=== PATIENT | male | born 1940 | race Caucasian/White ===

== ENCOUNTER 2020-06-07 17:13 | Inpatient (IN) ==
[2020-06-07] MEDS ORDERED: 0.9 % Sodium Chloride 1,000 ML IVC ONE (17:41)
[2020-06-07] MEDS ORDERED: Dexamethasone 4 MG/ML VIAL IVP ONE (17:43)
[2020-06-07 19:13] LABS: Basophils % 0.1 %; Eosinophils # 0.1 K/mcL (0.0-0.6); Eosinophils % 0.7 %; Hemoglobin 13.7 g/dL (12.9-16.9); Immature Granulocytes % 0.5 % (0-4); Lymphocytes # 0.7 K/mcL (0.6-4.6); Lymphocytes % 8.4 %; Mean Corpuscular HGB Conc 33.4 g/dL (31.6-35.5); Mean Corpuscular Hemoglobin 31.6 pg (28.0-33.3); Mean Corpuscular Volume 94.7 fL (83.0-100.0); Mean Platelet Volume 10.6 fL (9.4-12.4); Monocytes # 0.3 K/mcL (0.0-1.3); Monocytes % 3.7 %; Neutrophils # 7.5 K/mcL (1.6-8.9); Platelet Count 164 K/mcL (140-400); Red Blood Count 4.33 M/mcL (4.19-5.50); Red Cell Distribution Width 12.6 % (11.5-14.5); Segmented Neutrophils % 86.6 %; White Blood Count 8.7 K/mcL (4.3-11.1)
[2020-06-07 19:22] LABS: INR 1.3; Prothrombin Time 14.9 Seconds (9.4-12.1)
[2020-06-07 19:23] LABS: Activated Partial Thrombo Time 25.2 Seconds (26.0-36.0)
[2020-06-07 19:36] LABS: Alanine Aminotransferase 18 Units/L (7-52); Albumin 3.1 g/dL (3.5-5.7); Albumin/Globulin Ratio 0.9 (1.1-2.2); Alkaline Phosphatase 43 Units/L (34-104); Aspartate Amino Transferase 26 Units/L (13-39); BUN/Creatinine Ratio 23 (6-26); Bilirubin,Direct 0.3 mg/dL (0.0-0.2); Bilirubin,Indirect 0.6 mg/dL (0.0-1.0); Bilirubin,Total 0.9 mg/dL (0.3-1.0); Blood Urea Nitrogen 19 mg/dL (8-23); C-Reactive Protein 244 mg/L (Less than 10); Calcium 8.2 mg/dL (8.6-10.3); Carbon Dioxide 27 mEq/L (23-29); Chloride 99 mEq/L (98-107); Globulin 3.3 g/dL (2.4-3.5); Glucose 142 mg/dL (70-105); Lactate Dehydrogenase 297 Units/L (140-271); Magnesium 1.9 mg/dL (1.6-2.6); Osmolality,Calculated 289 (280-300); Phosphorous 2.5 mg/dL (2.7-4.5); Potassium 3.5 mEq/L (3.5-5.1); Sodium 137 mEq/L (136-145); Total Protein 6.4 g/dL (6.4-8.9); Troponin I < 0.03 ng/mL (< 0.04); eGFR For African Americans > 60 (> 60); eGFR For Non-African Americans > 60 (> 60)
[2020-06-07 19:54] LABS: Ferritin 795 ng/mL (20-250)
[2020-06-07 19:56] LABS: Adenovirus Not Detected (Not Detect); Coronavirus 229E Not Detected (Not Detect); Coronavirus HKU1 Not Detected (Not Detect); Coronavirus NL63 Not Detected (Not Detect); Coronavirus OC43 Not Detected (Not Detect)
[2020-06-07 19:59] LABS: SARS-CoV-2 DETECTED (Not Detect)
[2020-06-07 20:00] LABS: Bordetella Pertussis Not Detected (Not Detect); Chlamydophila pneumoniae Not Detected (Not Detect); Human Metapneumovirus Not Detected (Not Detect); Human Rhinovirus/Enterovirus Not Detected (Not Detect); Influenza A Subtype 2009 H1 Not Detected (Not Detect); Influenza B Not Detected (Not Detect); Mycoplasma pneumoniae Not Detected (Not Detect); Parainfluenza Virus 1 Not Detected (Not Detect); Parainfluenza Virus 2 Not Detected (Not Detect); Parainfluenza Virus 3 Not Detected (Not Detect); Parainfluenza Virus 4 Not Detected (Not Detect); Respiratory Syncytial Virus Not Detected (Not Detect)
[2020-06-07] MEDS ORDERED: Acetaminophen 325 MG TABLET PO PRN (21:30)
[2020-06-07] MEDS ORDERED: Ondansetron 4 MG/2 ML VIAL IVP PRN (21:30)
[2020-06-07] MEDS ORDERED: Naloxone 0.4 MG/ML INJ IVP PRN ×2 (21:30→23:00)
[2020-06-07] MEDS ORDERED: *HR* Heparin 5,000 UNIT/ML VIAL IVP PRN ×2 (23:00)
[2020-06-07] MEDS ORDERED: *HR* Heparin 5,000 UNIT/ML VIAL IVP ONE (23:00)
[2020-06-07] MEDS ORDERED: Dextrose Gel 15 GM/37.5 ML TUBE PO PRN ×2 (23:18)
[2020-06-07] MEDS ORDERED: *HR* Dextrose 50 % in Water (Vial) 50 ML VIAL IVP PRN (23:18)
[2020-06-07] MEDS ORDERED: D5% in Water 1,000 ML IVC PRN (23:18)
[2020-06-07] MEDS: Furosemide 40 MG/4 ML VIAL IVP SCH (23:34)
[2020-06-07] MEDS: Heparin 25,000UNIT/250ML 1/2NS 25,000 UNIT/250 ML IV.SOLN IVC SCH (23:35)
[2020-06-07 23:57] LABS: Hematocrit 38.7 % (37.5-50.1); Hemoglobin 13.3 g/dL (12.9-16.9); Mean Corpuscular HGB Conc 34.4 g/dL (31.6-35.5); Mean Corpuscular Hemoglobin 31.9 pg (28.0-33.3); Mean Corpuscular Volume 92.8 fL (83.0-100.0); Mean Platelet Volume 10.5 fL (9.4-12.4); Platelet Count 158 K/mcL (140-400); Red Blood Count 4.17 M/mcL (4.19-5.50); Red Cell Distribution Width 12.8 % (11.5-14.5); White Blood Count 7.9 K/mcL (4.3-11.1)
[2020-06-08 00:14] LABS: Heparin anti-factor XA UFH < 0.04 IU/mL (0.30-0.70)
[2020-06-08 00:15] LABS: INR 1.3; Prothrombin Time 15.1 Seconds (9.4-12.1)
[2020-06-08 02:09] LABS: Bilirubin,Urine Negative (Negative); Blood,Urine Negative (Negative); Clarity,Urine Clear (Clear); Color,Urine Light-Yellow (Yellow); Glucose,Urine (UA) Normal (Normal); Ketones,Urine 10 mg/dL (Negative); Leukocyte Esterase,Urine Negative (Negative); Nitrite,Urine Negative (Negative); Protein,Urine Trace mg/dL (Neg-Trace); Specific Gravity,Urine 1.015 (1.010-1.025); Urobilinogen,Urine Normal (Normal)
[2020-06-08] MEDS ORDERED: Pantoprazole 40 MG VIAL IVP SCH (06:30)
[2020-06-08 07:07] LABS: Hematocrit 39.8 % (37.5-50.1); Hemoglobin 13.6 g/dL (12.9-16.9); Mean Corpuscular HGB Conc 34.2 g/dL (31.6-35.5); Mean Corpuscular Hemoglobin 32.5 pg (28.0-33.3); Mean Platelet Volume 10.6 fL (9.4-12.4); Monocytes # 0.2 K/mcL (0.0-1.3); Platelet Count 175 K/mcL (140-400); Red Blood Count 4.19 M/mcL (4.19-5.50); Red Cell Distribution Width 12.6 % (11.5-14.5); White Blood Count 4.9 K/mcL (4.3-11.1)
[2020-06-08 07:11] LABS: INR 1.6; Prothrombin Time 17.8 Seconds (9.4-12.1)
[2020-06-08 07:26] LABS: D-Dimer 1817 ng/mLFEU (0-500)
[2020-06-08 07:28] LABS: BUN/Creatinine Ratio 24 (6-26); Blood Urea Nitrogen 21 mg/dL (8-23); Calcium 8.5 mg/dL (8.6-10.3); Carbon Dioxide 26 mEq/L (23-29); Chloride 99 mEq/L (98-107); Fibrinogen 766 mg/dL (169-393); Glucose 209 mg/dL (70-105); Heparin anti-factor XA UFH > 2.00 IU/mL (0.30-0.70); Magnesium 1.8 mg/dL (1.6-2.6); Osmolality,Calculated 291 (280-300); Potassium 3.8 mEq/L (3.5-5.1); Sodium 136 mEq/L (136-145); eGFR For African Americans > 60 (> 60); eGFR For Non-African Americans > 60 (> 60)
[2020-06-08 08:06] LABS: Lymphocytes # 0.7 K/mcL (0.6-4.6); Platelet Estimate Normal (Normal)
[2020-06-08 08:08] LABS: Reactive Lymphocytes Present (Not Present)
[2020-06-08] MEDS: Insulin LISPRO 300 UNITS/3 ML VIAL SQ SCH ×3 (09:35→16:03)
[2020-06-08] MEDS: Furosemide 40 MG/4 ML VIAL IVP SCH ×2 (09:57→19:49)
[2020-06-08] MEDS: Dexamethasone 4 MG/ML VIAL IVP SCH (09:58)
[2020-06-08 11:06] LABS: Estimated Average Glucose 194 mg/dl
[2020-06-08] MEDS ORDERED: NON-FORMULARY MEDICATION 1 EACH EACH (Metoprolol Succinate [Toprol Xl] 100 MG) PO SCH (11:45)
[2020-06-08 15:54] LABS: Acinetobacter baumannii by PCR Not Detected (Not Detect); Candida albicans by PCR Not Detected (Not Detect); Candida glabrata by PCR Not Detected (Not Detect); Candida krusei by PCR Not Detected (Not Detect); Candida parapsilosis by PCR Not Detected (Not Detect); Candida tropicalis by PCR Not Detected (Not Detect); Enterobacter cloacae Cmplx PCR Not Detected (Not Detect); Enterobacteriaceae by PCR Not Detected (Not Detect); Enterococcus by PCR Not Detected (Not Detect); Escherichia coli by PCR Not Detected (Not Detect); Klebsiella oxytoca by PCR Not Detected (Not Detect); Klebsiella pneumoniae by PCR Not Detected (Not Detect); Proteus by PCR Not Detected (Not Detect); Pseudomonas aeruginosa by PCR Not Detected (Not Detect); Serratia marcescens by PCR Not Detected (Not Detect); Staphylococcus aureus by PCR Not Detected (Not Detect); Staphylococcus by PCR DETECTED (Not Detect); Streptococcus agalactiae(B)PCR Not Detected (Not Detect); Streptococcus by PCR Not Detected (Not Detect); Streptococcus pneumoniae PCR Not Detected (Not Detect); Streptococcus pyogenes (A) PCR Not Detected (Not Detect); mecA Methicillin-Resist Gene Not Detected (Not Detect)
[2020-06-08] MEDS: Benzonatate 100 MG CAPSULE PO PRN (20:43)
[2020-06-08] MEDS ORDERED: Insulin LISPRO 300 UNITS/3 ML VIAL SQ SCH (21:00)
[2020-06-08] MEDS: Heparin 25,000UNIT/250ML 1/2NS 25,000 UNIT/250 ML IV.SOLN IVC SCH (21:57)
[2020-06-09 03:28] LABS: Basophils % 0.2 %; Hematocrit 41.2 % (37.5-50.1); Immature Granulocytes % 0.6 % (0-4); Lymphocytes # 0.7 K/mcL (0.6-4.6); Lymphocytes % 8.1 %; Mean Corpuscular Hemoglobin 31.7 pg (28.0-33.3); Mean Corpuscular Volume 93.2 fL (83.0-100.0); Mean Platelet Volume 10.6 fL (9.4-12.4); Monocytes # 0.3 K/mcL (0.0-1.3); Monocytes % 3.7 %; Neutrophils # 7.6 K/mcL (1.6-8.9); Platelet Count 227 K/mcL (140-400); Red Blood Count 4.42 M/mcL (4.19-5.50); Red Cell Distribution Width 12.5 % (11.5-14.5); Segmented Neutrophils % 87.4 %
[2020-06-09 03:30] LABS: White Blood Count 8.7 K/mcL (4.3-11.1)
[2020-06-09 03:39] LABS: D-Dimer 3073 ng/mLFEU (0-500); Fibrinogen 740 mg/dL (169-393)
[2020-06-09 03:44] LABS: Alanine Aminotransferase 18 Units/L (7-52); Albumin 3.1 g/dL (3.5-5.7); Albumin/Globulin Ratio 0.9 (1.1-2.2); Alkaline Phosphatase 41 Units/L (34-104); Aspartate Amino Transferase 21 Units/L (13-39); BUN/Creatinine Ratio 34 (6-26); Bilirubin,Total 0.7 mg/dL (0.3-1.0); Blood Urea Nitrogen 31 mg/dL (8-23); Calcium 8.6 mg/dL (8.6-10.3); Carbon Dioxide 26 mEq/L (23-29); Chloride 99 mEq/L (98-107); Globulin 3.3 g/dL (2.4-3.5); Glucose 228 mg/dL (70-105); Osmolality,Calculated 296 (280-300); Potassium 3.5 mEq/L (3.5-5.1); Sodium 136 mEq/L (136-145); Total Protein 6.4 g/dL (6.4-8.9); eGFR For African Americans > 60 (> 60); eGFR For Non-African Americans > 60 (> 60)
[2020-06-09] MEDS: Benzonatate 100 MG CAPSULE PO PRN ×2 (05:31→20:42)
[2020-06-09] MEDS: Insulin LISPRO 300 UNITS/3 ML VIAL SQ SCH ×4 (08:16→21:52)
[2020-06-09] MEDS: Aspirin Enteric Coated 81 MG Tablet PO SCH (08:16)
[2020-06-09] MEDS: Isosorbide MONOnitrate (24 HR) 30 MG TAB.ER.24H PO SCH (08:16)
[2020-06-09] MEDS: Metoprolol XL (24 HR) Succ 50 MG TAB.ER.24H PO SCH (08:16)
[2020-06-09] MEDS: Furosemide 40 MG/4 ML VIAL IVP SCH (08:26)
[2020-06-09] MEDS: Dexamethasone 4 MG/ML VIAL IVP SCH (08:26)
[2020-06-09] MEDS: Heparin 25,000UNIT/250ML 1/2NS 25,000 UNIT/250 ML IV.SOLN IVC SCH (15:05)
[2020-06-09] MEDS ORDERED: *HR* Heparin 5,000 UNIT/ML VIAL IVP PRN ×2 (15:18→15:19)
[2020-06-09] MEDS ORDERED: Heparin 25,000UNIT/250ML 1/2NS 25,000 UNIT/250 ML IV.SOLN IVC SCH ×2 (15:19→16:15)
[2020-06-09] MEDS ORDERED: ceFAZolin 1,000 MG in Water for inj. (sterile) 10 ML IVP SCH (16:00)
[2020-06-09] MEDS: *HR* Enoxaparin 100 MG/ML SYRINGE SQ SCH (17:34)
[2020-06-09] MEDS ORDERED: *HR* Enoxaparin 100 MG/ML SYRINGE SQ SCH (18:00)
[2020-06-10] MEDS ORDERED: CeFAZolin 2 GM/120 ML BAG IVPB SCH
[2020-06-10] MEDS: CeFAZolin 2 GM/120 ML BAG IVPB SCH ×4 (00:11→23:59)
[2020-06-10 03:02] LABS: Basophils % 0.1 %; Hematocrit 38.8 % (37.5-50.1); Hemoglobin 13.1 g/dL (12.9-16.9); Immature Granulocytes % 0.9 % (0-4); Lymphocytes # 0.7 K/mcL (0.6-4.6); Lymphocytes % 7.5 %; Mean Corpuscular HGB Conc 33.8 g/dL (31.6-35.5); Mean Corpuscular Hemoglobin 31.3 pg (28.0-33.3); Mean Corpuscular Volume 92.8 fL (83.0-100.0); Mean Platelet Volume 10.5 fL (9.4-12.4); Monocytes # 0.4 K/mcL (0.0-1.3); Monocytes % 4.1 %; Neutrophils # 8.2 K/mcL (1.6-8.9); Platelet Count 249 K/mcL (140-400); Red Blood Count 4.18 M/mcL (4.19-5.50); Red Cell Distribution Width 12.5 % (11.5-14.5); Segmented Neutrophils % 87.4 %; White Blood Count 9.4 K/mcL (4.3-11.1)
[2020-06-10 03:25] LABS: Alanine Aminotransferase 22 Units/L (7-52); Alkaline Phosphatase 41 Units/L (34-104); Aspartate Amino Transferase 26 Units/L (13-39); BUN/Creatinine Ratio 39 (6-26); Bilirubin,Total 0.5 mg/dL (0.3-1.0); Blood Urea Nitrogen 37 mg/dL (8-23); Calcium 8.4 mg/dL (8.6-10.3); Carbon Dioxide 24 mEq/L (23-29); Chloride 101 mEq/L (98-107); Globulin 3.1 g/dL (2.4-3.5); Glucose 224 mg/dL (70-105); Magnesium 1.8 mg/dL (1.6-2.6); Osmolality,Calculated 302 (280-300); Phosphorous 3.6 mg/dL (2.7-4.5); Potassium 3.2 mEq/L (3.5-5.1); Sodium 138 mEq/L (136-145); Total Protein 6.1 g/dL (6.4-8.9); eGFR For African Americans > 60 (> 60); eGFR For Non-African Americans > 60 (> 60)
[2020-06-10 03:33] LABS: INR 1.2; Prothrombin Time 13.4 Seconds (9.4-12.1)
[2020-06-10] MEDS: *HR* Enoxaparin 100 MG/ML SYRINGE SQ SCH ×2 (05:33→16:59)
[2020-06-10] MEDS: Insulin LISPRO 300 UNITS/3 ML VIAL SQ SCH ×4 (07:46→21:46)
[2020-06-10] MEDS ORDERED: Potassium Chloride Elixir 20 MEQ/15 ML UDC PO SCH (08:15)
[2020-06-10] MEDS: Isosorbide MONOnitrate (24 HR) 30 MG TAB.ER.24H PO SCH (09:22)
[2020-06-10] MEDS: Dexamethasone 4 MG/ML VIAL IVP SCH (09:22)
[2020-06-10] MEDS: Aspirin Enteric Coated 81 MG Tablet PO SCH (09:22)
[2020-06-10] MEDS: Furosemide 40 MG/4 ML VIAL IVP SCH (09:23)
[2020-06-10] MEDS: Metoprolol XL (24 HR) Succ 50 MG TAB.ER.24H PO SCH (09:24)
[2020-06-11] MEDS: *HR* Enoxaparin 100 MG/ML SYRINGE SQ SCH ×2 (05:29→16:30)
[2020-06-11 06:43] LABS: Basophils % 0.1 %; Eosinophils % 0.4 %; Hematocrit 40.8 % (37.5-50.1); Hemoglobin 13.8 g/dL (12.9-16.9); Immature Granulocytes % 0.6 % (0-4); Lymphocytes # 0.8 K/mcL (0.6-4.6); Lymphocytes % 10.8 %; Mean Corpuscular HGB Conc 33.8 g/dL (31.6-35.5); Mean Corpuscular Hemoglobin 31.8 pg (28.0-33.3); Mean Platelet Volume 10.3 fL (9.4-12.4); Monocytes # 0.3 K/mcL (0.0-1.3); Monocytes % 4.6 %; Neutrophils # 5.9 K/mcL (1.6-8.9); Platelet Count 237 K/mcL (140-400); Red Blood Count 4.34 M/mcL (4.19-5.50); Red Cell Distribution Width 12.2 % (11.5-14.5); Segmented Neutrophils % 83.5 %; White Blood Count 7.1 K/mcL (4.3-11.1)
[2020-06-11 06:50] LABS: INR 1.2; Prothrombin Time 13.6 Seconds (9.4-12.1)
[2020-06-11 07:06] LABS: Alanine Aminotransferase 26 Units/L (7-52); Albumin 3.1 g/dL (3.5-5.7); Alkaline Phosphatase 44 Units/L (34-104); Aspartate Amino Transferase 36 Units/L (13-39); BUN/Creatinine Ratio 41 (6-26); Bilirubin,Total 0.6 mg/dL (0.3-1.0); Blood Urea Nitrogen 31 mg/dL (8-23); Calcium 8.8 mg/dL (8.6-10.3); Carbon Dioxide 28 mEq/L (23-29); Chloride 103 mEq/L (98-107); Globulin 3.1 g/dL (2.4-3.5); Glucose 184 mg/dL (70-105); Magnesium 1.7 mg/dL (1.6-2.6); Osmolality,Calculated 299 (280-300); Phosphorous 3.2 mg/dL (2.7-4.5); Potassium 3.6 mEq/L (3.5-5.1); Sodium 139 mEq/L (136-145); Total Protein 6.2 g/dL (6.4-8.9); eGFR For African Americans > 60 (> 60); eGFR For Non-African Americans > 60 (> 60)
[2020-06-11] MEDS: Insulin LISPRO 300 UNITS/3 ML VIAL SQ SCH ×4 (08:40→22:25)
[2020-06-11] MEDS: Azithromycin 500 MG in 0.9 % Sodium Chloride 250 ML IVPB SCH (08:43)
[2020-06-11] MEDS: CeFAZolin 2 GM/120 ML BAG IVPB SCH ×2 (08:44→16:31)
[2020-06-11] MEDS: Aspirin Enteric Coated 81 MG Tablet PO SCH (08:45)
[2020-06-11] MEDS: Metoprolol XL (24 HR) Succ 50 MG TAB.ER.24H PO SCH (08:46)
[2020-06-11] MEDS: Isosorbide MONOnitrate (24 HR) 30 MG TAB.ER.24H PO SCH (08:46)
[2020-06-11] MEDS: Furosemide 40 MG/4 ML VIAL IVP SCH (08:47)
[2020-06-11] MEDS: Dexamethasone 4 MG/ML VIAL IVP SCH (08:51)
[2020-06-11] MEDS ORDERED: *HR* Warfarin 2.5 MG TABLET PO ONE (18:00)
[2020-06-11] MEDS ORDERED: Warfarin perPT PO PRN (18:00)
[2020-06-12] MEDS: CeFAZolin 2 GM/120 ML BAG IVPB SCH ×3 (01:47→16:39)
[2020-06-12 05:50] LABS: Basophils % 0.2 %; Eosinophils # 0.1 K/mcL (0.0-0.6); Eosinophils % 0.8 %; Hematocrit 41.3 % (37.5-50.1); Hemoglobin 13.9 g/dL (12.9-16.9); Immature Granulocytes % 0.9 % (0-4); Lymphocytes # 0.9 K/mcL (0.6-4.6); Lymphocytes % 13.8 %; Mean Corpuscular HGB Conc 33.7 g/dL (31.6-35.5); Mean Corpuscular Hemoglobin 31.7 pg (28.0-33.3); Mean Corpuscular Volume 94.3 fL (83.0-100.0); Mean Platelet Volume 10.3 fL (9.4-12.4); Monocytes # 0.4 K/mcL (0.0-1.3); Monocytes % 5.8 %; Neutrophils # 5.1 K/mcL (1.6-8.9); Platelet Count 258 K/mcL (140-400); Red Blood Count 4.38 M/mcL (4.19-5.50); Red Cell Distribution Width 12.2 % (11.5-14.5); Segmented Neutrophils % 78.5 %; White Blood Count 6.4 K/mcL (4.3-11.1)
[2020-06-12 06:01] LABS: INR 1.1; Prothrombin Time 12.9 Seconds (9.4-12.1)
[2020-06-12 06:14] LABS: Alanine Aminotransferase 36 Units/L (7-52); Albumin 3.2 g/dL (3.5-5.7); Alkaline Phosphatase 49 Units/L (34-104); Aspartate Amino Transferase 51 Units/L (13-39); BUN/Creatinine Ratio 38 (6-26); Bilirubin,Total 0.6 mg/dL (0.3-1.0); Blood Urea Nitrogen 29 mg/dL (8-23); Calcium 8.9 mg/dL (8.6-10.3); Carbon Dioxide 29 mEq/L (23-29); Chloride 103 mEq/L (98-107); Globulin 3.1 g/dL (2.4-3.5); Glucose 169 mg/dL (70-105); Magnesium 1.8 mg/dL (1.6-2.6); Osmolality,Calculated 298 (280-300); Phosphorous 3.4 mg/dL (2.7-4.5); Potassium 3.8 mEq/L (3.5-5.1); Sodium 139 mEq/L (136-145); Total Protein 6.3 g/dL (6.4-8.9); eGFR For African Americans > 60 (> 60); eGFR For Non-African Americans > 60 (> 60)
[2020-06-12] MEDS: Aspirin Enteric Coated 81 MG Tablet PO SCH (09:01)
[2020-06-12] MEDS: Benzonatate 100 MG CAPSULE PO PRN (09:01)
[2020-06-12] MEDS: Dexamethasone 4 MG/ML VIAL IVP SCH (09:02)
[2020-06-12] MEDS: Furosemide 40 MG/4 ML VIAL IVP SCH (09:02)
[2020-06-12] MEDS: Isosorbide MONOnitrate (24 HR) 30 MG TAB.ER.24H PO SCH (09:02)
[2020-06-12] MEDS: Metoprolol XL (24 HR) Succ 50 MG TAB.ER.24H PO SCH (09:02)
[2020-06-12] MEDS: Azithromycin 500 MG in 0.9 % Sodium Chloride 250 ML IVPB SCH (09:04)
[2020-06-12] MEDS: *HR* Enoxaparin 100 MG/ML SYRINGE SQ SCH ×2 (09:07→17:51)
[2020-06-12] MEDS: Insulin LISPRO 300 UNITS/3 ML VIAL SQ SCH ×3 (09:08→16:40)
[2020-06-12 11:20] VITALS: BP 119/72
[2020-06-12] MEDS ORDERED: *HR* Warfarin 2.5 MG TABLET PO ONE (18:00)
== END 2020-06-12 18:54 | disposition home or self-care (01) | DRG 871 ==
LOC: EMEROOARM 17:13 → 2NENU 17:13 → SUATTDRO 20:58 → 2NENU 21:22
PROVIDERS: ADMIT Pharmacist; ATTEND Internal Medicine

== ENCOUNTER 2021-05-30 17:25 | Observation (INO) ==
[2021-05-30 18:29] LABS: Basophils % 0.5 %; Eosinophils # 0.1 K/mcL (0.0-0.6); Eosinophils % 2.1 %; Hematocrit 41.9 % (37.5-50.1); Immature Granulocytes % 0.2 % (0-4); Lymphocytes # 1.8 K/mcL (0.6-4.6); Lymphocytes % 31.2 %; Mean Corpuscular HGB Conc 33.4 g/dL (31.6-35.5); Mean Corpuscular Hemoglobin 32.8 pg (28.0-33.3); Mean Corpuscular Volume 98.1 fL (83.0-100.0); Mean Platelet Volume 10.3 fL (9.4-12.4); Monocytes # 0.5 K/mcL (0.0-1.3); Monocytes % 8.1 %; Neutrophils # 3.3 K/mcL (1.6-8.9); Platelet Count 222 K/mcL (140-400); Red Blood Count 4.27 M/mcL (4.19-5.50); Red Cell Distribution Width 13.4 % (11.5-14.5); Segmented Neutrophils % 57.9 %; White Blood Count 5.7 K/mcL (4.3-11.1)
[2021-05-30 18:51] LABS: BUN/Creatinine Ratio 12 (6-26); Blood Urea Nitrogen 11 mg/dL (8-23); Calcium 9.3 mg/dL (8.6-10.3); Carbon Dioxide 30 mEq/L (23-29); Chloride 106 mEq/L (98-107); Glucose 103 mg/dL (70-105); Osmolality,Calculated 296 (280-300); Potassium 4.1 mEq/L (3.5-5.1); Sodium 143 mEq/L (136-145); Troponin I < 0.03 ng/mL (< 0.04); eGFR For African Americans > 60 (> 60); eGFR For Non-African Americans > 60 (> 60)
[2021-05-30 20:12] LABS: INR 1.3; Prothrombin Time 14.8 Seconds (9.4-12.1)
[2021-05-30 20:15] LABS: Activated Partial Thrombo Time 31.3 Seconds (26.0-36.0)
[2021-05-30] MEDS: Aspirin 81 MG TAB.CHEW PO SCH (22:08)
[2021-05-30] MEDS ORDERED: Perflutren Lipid Microsphere 1.3 ML in 0.9 % Sodium Chloride 8.7 ML IVP PRN (22:28)
[2021-05-30] MEDS ORDERED: *HR* Heparin 5,000 UNIT/ML VIAL IVP ONE (22:32)
[2021-05-30] MEDS ORDERED: *HR* Heparin 5,000 UNIT/ML VIAL IVP PRN ×2 (22:32)
[2021-05-30] MEDS ORDERED: Dextrose Gel 15 GM/37.5 ML TUBE PO PRN ×2 (22:36)
[2021-05-30] MEDS ORDERED: D5% in Water 1,000 ML IVC PRN (22:36)
[2021-05-30] MEDS ORDERED: *HR* Dextrose 50 % in Water (Syg) 50 ML SYRINGE IVP PRN (22:36)
[2021-05-30] MEDS ORDERED: Acetaminophen 325 MG TABLET PO PRN (22:38)
[2021-05-30] MEDS ORDERED: Naloxone 0.4 MG/ML INJ IVP PRN (22:38)
[2021-05-30] MEDS ORDERED: Ondansetron 4 MG/2 ML VIAL IVP PRN (22:38)
[2021-05-30] MEDS ORDERED: Insulin LISPRO 300 UNITS/3 ML VIAL SUBQ SCH (22:45)
[2021-05-30] MEDS ORDERED: Heparin 25,000UNIT/250ML 1/2NS 25,000 UNIT/250 ML IV.SOLN IVC SCH (22:45)
[2021-05-30] MEDS ORDERED: Morphine Sulfate 2 MG/ML SYRINGE IVP PRN (22:52)
[2021-05-30] MEDS ORDERED: Nitroglycerin 0.4 MG TAB.SUBL SL PRN (22:52)
[2021-05-31] MEDS: Insulin LISPRO 300 UNITS/3 ML VIAL SUBQ SCH ×3 (00:21→12:09)
[2021-05-31 01:36] LABS: Hemoglobin 13.1 g/dL (12.9-16.9); Mean Corpuscular HGB Conc 33.6 g/dL (31.6-35.5); Mean Corpuscular Hemoglobin 33.2 pg (28.0-33.3); Mean Platelet Volume 10.5 fL (9.4-12.4); Platelet Count 190 K/mcL (140-400); Red Blood Count 3.94 M/mcL (4.19-5.50); Red Cell Distribution Width 13.3 % (11.5-14.5); White Blood Count 5.2 K/mcL (4.3-11.1)
[2021-05-31 01:47] LABS: INR 1.4; Prothrombin Time 15.1 Seconds (9.4-12.1)
[2021-05-31 01:49] LABS: Activated Partial Thrombo Time 31.5 Seconds (26.0-36.0)
[2021-05-31 01:50] LABS: BUN/Creatinine Ratio 12 (6-26); Blood Urea Nitrogen 11 mg/dL (8-23); Calcium 8.8 mg/dL (8.6-10.3); Carbon Dioxide 29 mEq/L (23-29); Chloride 106 mEq/L (98-107); Chol/HDL Ratio 3.5 (0-4.9); Cholesterol 123 mg/dL (< 200); Glucose 194 mg/dL (70-105); HDL Cholesterol 35 mg/dL (40-59); LDL Cholesterol,Calculated 45 mg/dL (< 100); Magnesium 1.5 mg/dL (1.6-2.6); Osmolality,Calculated 297 (280-300); Potassium 3.5 mEq/L (3.5-5.1); Sodium 141 mEq/L (136-145); Triglycerides 214 mg/dL (< 150); eGFR For African Americans > 60 (> 60); eGFR For Non-African Americans > 60 (> 60)
[2021-05-31] MEDS ORDERED: *HR* Heparin 5,000 UNIT/ML VIAL IVP ONE (02:00)
[2021-05-31] MEDS ORDERED: Regadenoson 0.4 MG/5 ML SYRINGE IVP ONE (06:33)
[2021-05-31] MEDS ORDERED: Aspirin Enteric Coated 81 MG Tablet PO SCH (09:00)
[2021-05-31] MEDS: Aspirin 81 MG TAB.CHEW PO SCH (10:12)
[2021-05-31 10:30] VITALS: BP 145/84; PULSE 67; TEMP 98.4; O2SAT 98
[2021-05-31 12:57] LABS: Estimated Average Glucose 134 mg/dl; Hemoglobin A1C 6.3 %
== END 2021-05-31 15:22 | disposition home or self-care (01) ==
LOC: 2ANU 17:25 → EMEROOARM 17:25 → SUATTDRO 22:09 → 2ANU 23:45
PROVIDERS: ADMIT Internal Medicine; ATTEND Student in an Organized Health Care Education/Training Program